=== PATIENT | male | born 1950 | race Caucasian/White ===

== ENCOUNTER 2017-02-17 09:21 | Outpatient (CLI) | payer OTHER ==
[~2017-02-17] VITALS: Ht 170.2 cm; Wt 95.9 kg
[~2017-02-17 09:21] MED LIST: ASPI81TA3 PO; MTF1000T PO
[2017-02-17] MEDS ORDERED: LORA10TA3 PO (09:49)
[2017-02-17] MEDS ORDERED: GLIP2.5T14 PO (09:49)
[2017-02-17] MEDS ORDERED: ATOR10TA65 PO (09:49)
[2017-02-17] MEDS ORDERED: BENA5TAB2 PO (09:49)
[2017-02-17 09:50] VITALS: BP 141/76; PULSE 85; RESP 20; Ht 170.2 cm; Wt 95.9 kg
--- NOTE | 2017-02-17 12:12 | PN ---
Date/Time of Note Date/Time of Note DATE: 02/17/17 TIME: 12:02 Assessment/Plan Assessment/Plan Assessment/Plan [facility] Progress Note Date of Service: 02/17/17 Today's Impression & Plan: Has remained stable after discharge. S/p liver biopsy 01/19/17. Path shows no obvious malignancy, but cannot rule out (inflammation seen; possibility of biopsy region being near area of a malignancy was raised). Patient himself is doing well. No weight loss. No change in appetite. No symptoms of pancreatitis or liver dysfunction. Tumor markers normal. We need another close look at the head of pancreas and liver, and the best study is to do an EUS. 1. EUS 2. Multidisciplinary tumor board presentation 3. F/u with us afterwards Thank you very much for allowing us to participate in the care of this very nice patient and wonderful family. If there are any questions, please feel free to contact me at . Total visit time: 20 minutes, of which more than half was spent in [id number] discussion with the patient, possibly including time to discuss issues with family, as well as coordination of care with multiple other physicians and providers. Please note: Spelling or grammatical errors in this note are likely due to EHR/ dictation systems and are not reflective of patient care quality. Also please note that the dictation timestamp of this note does not necessarily reflected time of the visit for this service. Updated Clinical Summary: The patient is a very pleasant 66-year-old gentleman without significant known past medical history, and comorbidity of BMI 32.4, who was transferred from outside hospital to [facility] on 01/17/17 for evaluation of the pancreatic mass with possible invasion into duodenum as well as liver. COMORBIDITIES: 1. BMI 32.4. 2. Mass in liver and pancreas, s/p perc bx 01/19/17. Path showed no obvious malignancy, but could not rule out (inflammation seen; possibility of biopsy region being near area of a malignancy was raised). Patient himself was doing well. No weight loss. No change in appetite. No symptoms of pancreatitis or liver dysfunction. Tumor markers normal. Subjective: No major events or complaints since discharge. No major pain complaints and reportedly under control with medications. No N/V, SOB or CP. + bowel activity Objective: Vitals: reviewed; please also see EHR Physical Exam: Lungs: breathing comfortably without tachypnea; no audible wheezes, rales or rhonchi on gross exam Abd: Soft, non-tender, and non-distended; no peritoneal signs or guarding Skin: Appears pink and feels warm to touch. Neuro: Awake, alert and follows commands appropriately Exam/Review of Systems Vital Signs Vitals Vital Signs Date Time Temp Pulse Resp B/P Pulse Ox O2 Delivery O2 Flow Rate FiO2 02/17/17 09:50 97.6 85 20 141/76 97 Room Air HUNG STANTON M.D. Feb 17, 2017 12:12
== END 2017-02-17 16:28 | disposition home or self-care (01) ==
LOC: HPC 09:21
PROVIDERS: ATTEND Transplant Surgery
DX: R16.0 Hepatomegaly, not elsewhere classified (principal)
CPT/HCPCS: G0463

== ENCOUNTER 2017-10-13 11:18 | Outpatient (CLI) | payer OTHER ==
[~2017-10-13] VITALS: Ht 170.2 cm; Wt 99.5 kg
[~2017-10-13 11:18] MED LIST changes: +ATOR10TA65 PO; +BENA5TAB2 PO; +GLIP2.5T14 PO; +LORA10TA3 PO
[2017-10-13 11:23] VITALS: BP 121/74; PULSE 74; RESP 18; Ht 170.2 cm; Wt 99.5 kg
[2017-10-13] MEDS ORDERED: LANT3I SC (11:30)
--- NOTE | 2017-10-13 12:51 | CONS ---
DATE OF CONSULTATION: 10/13/2017 [facility] PROGRESS NOTE PLACE OF SERVICE: [facility] at [facility]. Updated Clinical Summary: A very pleasant 66-year-old gentleman without significant known past medical history, and comorbidity of BMI 32.4, who was transferred from outside hospital to [facility] on 01/17/17 for evaluation of the pancreatic mass with possible invasion into duodenum as well as liver. Discharged home. EUS 04/26/17 Dr[place] [facility] [place] 1 cm x 1.1 cm well defined hypoechoic mass in the neck/proximal body of pancreas, likely NE tumor. Comorbidities: 1. BMI 32.4. 2. Mass in liver and pancreas, s/p perc bx 01/19/17. Path showed no obvious malignancy, but could not rule out (inflammation seen; possibility of biopsy region being near area of a malignancy was raised). Patient himself was doing well. No weight loss. No change in appetite. No symptoms of pancreatitis or liver dysfunction. Tumor markers normal. EUS 04/26/17 Dr. Fox at [facility] [place]: 1 cm x 1.1 cm well defined hypoechoic mass in the neck/proximal body of pancreas, likely NE tumor. 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 Fox as well as a previous area of concern in the uncinate process of the pancreas and the caudate/segment 4B of the liver which was the initial presentation in 12/2016. He reports feeling well. There is no abdominal pain. Appetite has been good and he has not had any untoward weight loss. No changes in bowel or bladder habits, and no visits to the hospital for any reason. OBJECTIVE: VITAL SIGNS: BMI of 34.4. Vital signs are normal with slightly low temperature at 97.4 and slightly high, blood pressure at 121/74. HEENT: Head is normocephalic and atraumatic. His extraocular muscles and hearing are grossly intact bilaterally and symmetrically. His sclerae are nonicteric. His oral cavity is clear, and his oral mucosa appeared to be pink and moist. His dentition is fair to poor. NECK: Supple. There is no lymphadenopathy or JVD. There is no submental, submandibular or supraclavicular lymphadenopathy. CHEST: Rises symmetrically with each breath and he is breathing comfortably. There are no audible wheezes, rales or rhonchi on the gross exam. HEART: His carotid pulses are palpable bilaterally and symmetrically in his neck. Radial pulses palpable on the left wrist. EXTREMITIES: Lower extremities contain no pitting edema around the ankles bilaterally and symmetrically. ABDOMEN: Soft, nontender and nondistended. There is no evidence of organomegaly, caput medusae, engorged subcutaneous veins, or ascites. There are no peritoneal signs or guarding. SKIN: Appears to be pink and feels warm to touch. NEUROLOGIC: He is awake, alert, and follows commands appropriately. LABORATORY DATA: None for this visit. IMAGING: None for this visit. 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 Since the patient has had such a long period between December and now without any further new symptoms, my index of suspicion that the head of the pancreas has a significant pathology is low. The neuroendocrine tumor in the neck and proximal body of the pancreas is relatively small enough that we elected to watch with further followup since the clinical picture was not very clear. At this point, the patient is eligible for further studies which I am ordering today in the form of pancreas protocol CT and I recommended that we reviewed these images in a multidisciplinary fashion again and perhaps follow this with an endoscopic ultrasound within 6 months of this scan. With watchful waiting we can potentially manage this without an operation, although the threshold to operate would be low. I explained all this to the patient and his and answered all questions. The patient and his appeared to understand and agreed with plans. With the above assessments, I have recommended the followin. Pancreas protocol CT of the abdomen and pelvis. 2. Multidisciplinary Tumor Board presentation. 3. Consider repeating tumor markers. 4. Endoscopic ultrasound evaluation of the pancreas 6 months from the date of the above CT scan. Thank you again for allowing us to continue to participate in the care of this very pleasant gentleman and his wonderful family. If there are any questions, please feel free to contact me at [phone]. NATURE OF PRESENTING PROBLEM: High risk. COMPLEXITY OF DECISION-MAKING: High complexity. Dictated By: HUNG SALMERON/JAMES Conf#: [id number] DID#: [id number]
== END 2017-10-13 15:27 | disposition home or self-care (01) ==
LOC: HPC 11:18
PROVIDERS: ATTEND Transplant Surgery
DX: K86.9 Disease of pancreas, unspecified (principal)
CPT/HCPCS: G0463